=== PATIENT | male | born 1995 | race Caucasian/White ===

== ENCOUNTER 2021-03-11 08:50 | Outpatient (RCR) | payer BC ==
[2021-03-11 09:46] LABS: SEMEN VOLUME 6.6 ML (1.5-5.0)
== END 2021-06-09 | disposition home or self-care (01) ==
LOC: LAB 08:50
PROVIDERS: ATTEND Obstetrics & Gynecology Gynecology
DX: N46.9 Male infertility, unspecified (principal)
CPT/HCPCS: 89320